=== PATIENT | female | born 1945 | race Hispanic/Latino ===

== ENCOUNTER → 2018-11-07 | Outpatient (CLI) | payer OTHER | END | disposition home or self-care (01) | LOC: RAH 11:58 | PROVIDERS: ATTEND Physical Medicine & Rehabilitation | DX: M47.812 Spondylosis without myelopathy or radiculopathy, cervical region (principal); M85.88 Other specified disorders of bone density and structure, other site; M46.92 Unspecified inflammatory spondylopathy, cervical region | CPT/HCPCS: 72050 ==

== ENCOUNTER 2020-01-10 20:27 | Emergency (ER) | payer OTHER ==
[2020-01-10] MEDS ORDERED: ACETAMINOPHEN EXTRA STRENGTH 500 MG TABLET ONE (20:59)
[2020-01-10] MEDS ORDERED: ONDANSETRON ODT 4 MG TAB ONE (23:13)
[2020-01-10] MEDS ORDERED: OSELTAMIVIR PHOSPHATE 75 MG CAP ONE (23:13)
== END 2020-01-10 23:44 | disposition home or self-care (01) ==
LOC: EDH 20:27
DX: J11.1 Influenza due to unidentified influenza virus with other respiratory manifestations (principal); I10 Essential (primary) hypertension; E78.00 Pure hypercholesterolemia, unspecified
CPT/HCPCS: 87804

== ENCOUNTER 2021-01-22 17:52 | Emergency (ER) | payer OTHER ==
[2021-01-22] MEDS ORDERED: CEFTRIAXONE SODIUM 1 GM IVP ONE (17:53)
[2021-01-22] MEDS ORDERED: ASPIRIN 325 MG TABLET ONE (18:07)
[2021-01-22] MEDS ORDERED: ONDANSETRON HCL 4 MG/2 ML VIAL ONE (18:07)
[2021-01-22 18:30] LABS: BASOPHILS % (AUTO) 0.4 % (0.0-5.0); HEMATOCRIT 39.7 % (36-48); LYMPHOCYTES % (AUTO) 22.1 % (21.0-51.0); MEAN CORPUSCULAR HEMOGLOBIN 28.3 pg (27.0-33.0); MEAN CORPUSCULAR HGB CONC 32.2 g/dL (32.0-36.0); MEAN CORPUSCULAR VOLUME 87.8 fL (79-99); MONOCYTES % (AUTO) 6.4 % (3.0-13.0); NEUTROPHILS % (AUTO) 69.8 % (40.0-77.0); PLATELET COUNT (AUTO) 253 K/uL (130-400); RED BLOOD CELL COUNT(AUTO) 4.52 MIL/uL (4.00-5.50); RED CELL DISTRIBUTION WIDTH 13.3 % (11.0-15.5)
[2021-01-22 18:40] LABS: APPEARANCE,URINE Clear (CLEAR); BILIRUBIN,URINE Negative (NEGATIVE); COLOR,URINE Yellow (YELLOW); GLUCOSE, URINE (UA) Negative (NEGATIVE); KETONES,URINE Trace mg/dL (NEGATIVE); LEUKOCYTE ESTERASE ,URINE Small (NEGATIVE); NITRATE,URINE Positive (NEGATIVE); OCCULT BLOOD,URINE Moderate (NEGATIVE); PROTEIN,URINE Negative (NEGATIVE)
[2021-01-22 18:41] LABS: CREATININE 0.7 mg/dL (0.5-1.5); POTASSIUM 4.1 mmol/L (3.5-5.1)
[2021-01-22 18:43] LABS: INR 0.91 (0.85-1.15)
[2021-01-22 18:44] LABS: PARTIAL THROMBOPLASTIN TIME 22.4 SEC (26.3-35.5)
[2021-01-22 18:46] LABS: ALBUMIN 3.8 g/dL (3.5-5.0); BILIRUBIN,TOTAL 0.2 mg/dL (0.2-1.0); TOTAL PROTEIN, SERUM 7.8 g/dL (6.0-8.3)
[2021-01-22 18:55] LABS: B-TYPE NATRIURETIC PEPTIDE 26 pg/mL (0-100)
[2021-01-22] MEDS ORDERED: PANTOPRAZOLE 40 MG/VIAL ONE (18:58)
[2021-01-22 18:59] LABS: BACTERIA,URINE Moderate /HPF (None Seen); RBC,URINE 0-1 /HPF (0-1)
[2021-01-22 19:00] LABS: SQUAMOUS EPITHELIAL CELL,UR Few /HPF (0-2)
[2021-01-22] MEDS ORDERED: IOHEXOL-350 75 ML VIAL IV ONE (19:50)
[2021-01-22] MEDS ORDERED: MAG HYDROX/AL HYDROX/SIMETH ES 30 ML SUSP UDCUP ONE (21:28)
[2021-01-22] MEDS ORDERED: LIDOCAINE HCL 2% VISCOUS 15 ML UDCUP ONE (21:28)
== END 2021-01-22 22:31 | disposition home or self-care (01) ==
LOC: EDH 17:52
DX: K29.00 Acute gastritis without bleeding (principal); R10.84 Generalized abdominal pain; I10 Essential (primary) hypertension; E78.00 Pure hypercholesterolemia, unspecified
CPT/HCPCS: 36415; 71045; 74177; 80053; 81001; 82550; 83690; 83880; 84484; 85025; 85610; 85730; 87077; 87088; 87186; 93005; 96365; 96375; 99285; C9113; J0696; J2405; Q9967

== ENCOUNTER → 2021-02-24 | Outpatient (CLI) | payer OTHER | END | disposition home or self-care (01) | LOC: RAH 09:47 | PROVIDERS: ATTEND Physical Medicine & Rehabilitation | DX: M47.26 Other spondylosis with radiculopathy, lumbar region (principal); M51.36 Other intervertebral disc degeneration, lumbar region; G95.89 Other specified diseases of spinal cord | CPT/HCPCS: 72100 ==

== ENCOUNTER 2021-06-22 18:35 | Emergency (ER) | payer MEDICARE, OTHER ==
[~2021-06-22] VITALS: Ht 154.9 cm; Wt 77.1 kg
[2021-06-22 18:37] VITALS: BP 152/92
[2021-06-22 18:54] LABS: APPEARANCE,URINE Clear (CLEAR); BILIRUBIN,URINE Negative (NEGATIVE); COLOR,URINE Yellow (YELLOW); GLUCOSE, URINE (UA) Negative (NEGATIVE); KETONES,URINE Negative (NEGATIVE); LEUKOCYTE ESTERASE ,URINE Moderate (NEGATIVE); NITRATE,URINE Negative (NEGATIVE); OCCULT BLOOD,URINE Trace (NEGATIVE); PH,URINE 6.5 (5.0-8.0); PROTEIN,URINE Negative (NEGATIVE); UROBILINOGEN,URINE 0.2 mg/dL (0.2-1.0)
[2021-06-22] MEDS ORDERED: ONDANSETRON 4MG INJ IVP SCH (19:00)
[2021-06-22] MEDS ORDERED: HYDROMORPHONE 1 MG INJ IVP SCH (19:00)
[2021-06-22] MEDS ORDERED: 0.9%NACL 1000ML 1,000 ML IV ONE (19:00)
[2021-06-22 19:29] LABS: BACTERIA,URINE Few /HPF (None Seen); MUCUS,URINE Few LPF (None Seen); SQUAMOUS EPITHELIAL CELL,UR Few /HPF (0-2); TRANSITIONAL EPI CELLS,URINE Moderate /HPF (None Seen)
[2021-06-22 19:35] LABS: BASOPHILS % (AUTO) 0.8 % (0.0-5.0); HEMATOCRIT 39.6 % (36-48); LYMPHOCYTES % (AUTO) 26.5 % (21.0-51.0); MEAN CORPUSCULAR HEMOGLOBIN 29.3 pg (27.0-33.0); MEAN CORPUSCULAR HGB CONC 33.3 g/dL (32.0-36.0); MEAN CORPUSCULAR VOLUME 87.8 fL (79-99); MONOCYTES % (AUTO) 6.5 % (3.0-13.0); NEUTROPHILS % (AUTO) 63.9 % (40.0-77.0); PLATELET COUNT (AUTO) 291 K/uL (130-400); RED BLOOD CELL COUNT(AUTO) 4.51 MIL/uL (4.00-5.50); RED CELL DISTRIBUTION WIDTH 12.9 % (11.0-15.5); WHITE BLOOD COUNT (AUTO) 6.6 K/uL (4.8-10.8)
[2021-06-22 19:51] LABS: CREATININE 0.6 mg/dL (0.5-1.5)
[2021-06-22 19:55] LABS: ALBUMIN 3.8 g/dL (3.5-5.0); BILIRUBIN,TOTAL 0.3 mg/dL (0.2-1.0)
[2021-06-22] MEDS ORDERED: NAPR-1180 PO (21:16)
[2021-06-22 21:29] VITALS: BP 134/88
== END 2021-06-22 21:44 | disposition home or self-care (01) ==
LOC: EDH 18:35
DX: N20.1 Calculus of ureter (principal); Z90.49 Acquired absence of other specified parts of digestive tract; K29.70 Gastritis, unspecified, without bleeding
CPT/HCPCS: 36415; 74176; 80053; 81001; 82150; 83690; 85025; 87088; 93005 ×2; 96361; 96374; 96375; 99285; J1170; J2405; J7030

== ENCOUNTER 2021-12-18 20:14 | Emergency (ER) | payer MEDICARE, OTHER ==
[~2021-12-18] VITALS: Ht 152.4 cm; Wt 72.6 kg
[~2021-12-18 20:14] MED LIST: NAPR-1180 PO
[2021-12-18 20:48] LABS: APPEARANCE,URINE CLEAR (CLEAR); BILIRUBIN,URINE NEGATIVE (NEGATIVE); COLOR,URINE YELLOW (YELLOW); GLUCOSE, URINE (UA) NEGATIVE (NEGATIVE); KETONES,URINE NEGATIVE (NEGATIVE); LEUKOCYTE ESTERASE ,URINE NEGATIVE (NEGATIVE); NITRATE,URINE NEGATIVE (NEGATIVE); OCCULT BLOOD,URINE NEGATIVE (NEGATIVE); PROTEIN,URINE NEGATIVE (NEGATIVE)
[2021-12-18 21:11] LABS: BASOPHILS % (AUTO) 0.5 % (0.0-5.0); EOSINOPHILS % (AUTO) 1.2 % (0.0-8.0); HEMATOCRIT 36.1 % (36-48); LYMPHOCYTES % (AUTO) 15.1 % (21.0-51.0); MEAN CORPUSCULAR HEMOGLOBIN 28.7 pg (27.0-33.0); MEAN CORPUSCULAR HGB CONC 32.1 g/dL (32.0-36.0); MEAN CORPUSCULAR VOLUME 89.4 fL (79-99); MONOCYTES % (AUTO) 5.3 % (3.0-13.0); NEUTROPHILS % (AUTO) 77.6 % (40.0-77.0); PLATELET COUNT (AUTO) 310 K/uL (130-400); RED BLOOD CELL COUNT(AUTO) 4.04 MIL/uL (4.00-5.50); RED CELL DISTRIBUTION WIDTH 13.6 % (11.0-15.5); WHITE BLOOD COUNT (AUTO) 7.8 K/uL (4.8-10.8)
[2021-12-18 21:25] LABS: CREATININE 0.7 mg/dL (0.5-1.5); POTASSIUM 4.1 mmol/L (3.5-5.1)
[2021-12-18 21:31] LABS: ALBUMIN 3.2 g/dL (3.5-5.0); BILIRUBIN,TOTAL 0.7 mg/dL (0.2-1.0); TOTAL PROTEIN, SERUM 7.3 g/dL (6.0-8.3)
[2021-12-19] MEDS ORDERED: MORPHINE 4 MG SYG IV ONE (03:30)
[2021-12-19] MEDS ORDERED: ONDANSETRON 4MG INJ IVP ONE (03:30)
[2021-12-19] MEDS ORDERED: 0.9% NACL 500ML IV.SOLN 500 ML IV ONE (03:30)
[2021-12-19] MEDS ORDERED: FAMOTIDINE 20MG VIAL IV ONE (03:30)
[2021-12-19] MEDS ORDERED: IOHEXOL 350 MG/ML 100ML INFUS..BTL IV ONE (03:44)
[2021-12-19 03:49] LABS: INR 0.94 (0.85-1.15); PROTHROMBIN TIME 10.3 SEC (9.6-11.6)
[2021-12-19 03:50] LABS: PARTIAL THROMBOPLASTIN TIME 25.3 SEC (26.3-35.5)
[2021-12-19 08:24] VITALS: BP 135/65
[2021-12-25] MEDS ORDERED: METR-172 PO (07:55)
[2021-12-25] MEDS ORDERED: LEVO500T90 PO (07:55)
== END 2021-12-19 08:25 | disposition home or self-care (01) ==
LOC: EDH 20:14
DX: K83.8 Other specified diseases of biliary tract (principal); Z87.442 Personal history of urinary calculi; Z90.49 Acquired absence of other specified parts of digestive tract; Z79.899 Other long term (current) drug therapy
CPT/HCPCS: 36415 ×2; 74177; 76705; 80053; 81003; 82140; 85025; 85610; 85730; 86140; 96374; 96375; 99285; J2270; J2405; J3490; J7040; Q9967

== ENCOUNTER → 2023-01-25 | Outpatient (CLI) | payer OTHER ==
[~2023-01-25] MED LIST changes: +LEVO-70 PO; +METR-172 PO
== END | disposition home or self-care (01) ==
LOC: RAH 08:00
PROVIDERS: ATTEND Internal Medicine
DX: M47.26 Other spondylosis with radiculopathy, lumbar region (principal); M51.16 Intervertebral disc disorders with radiculopathy, lumbar region; M48.061 Spinal stenosis, lumbar region without neurogenic claudication
CPT/HCPCS: 72148

== ENCOUNTER → 2023-05-31 | Outpatient (CLI) | payer OTHER | END | disposition home or self-care (01) | LOC: RAH 10:04 | PROVIDERS: ATTEND Clinical Nurse Specialist Family Health | DX: M19.042 Primary osteoarthritis, left hand (principal); M19.041 Primary osteoarthritis, right hand | CPT/HCPCS: 73130 ==

== ENCOUNTER 2023-06-14 22:54 | Emergency (ER) | payer OTHER ==
[~2023-06-14] VITALS: Ht 160 cm; Wt 81.6 kg
[2023-06-14 23:22] LABS: BASOPHILS # (AUTO) 0.05 K/uL (0.00-0.20); BASOPHILS % (AUTO) 0.6 % (0.0-5.0); EOSINOPHILS # (AUTO) 0.09 K/uL (0.00-0.70); EOSINOPHILS % (AUTO) 1.1 % (0.0-8.0); HEMATOCRIT 38.9 % (36-48); IMMATURE GRANULOCYTE ABSOLUTE 0.02 K/uL (0-1); LYMPHOCYTES # (AUTO) 1.6 K/uL (1.0-4.8); LYMPHOCYTES % (AUTO) 19.6 % (21.0-51.0); MEAN CORPUSCULAR HEMOGLOBIN 28.6 pg (27.0-33.0); MEAN CORPUSCULAR HGB CONC 33.2 g/dL (32.0-36.0); MEAN CORPUSCULAR VOLUME 86.3 fL (79-99); MONOCYTES # (AUTO) 0.5 K/uL (0.1-1.0); MONOCYTES % (AUTO) 6.1 % (3.0-13.0); NEUTROPHILS # (AUTO) 5.8 K/uL (1.8-7.7); NEUTROPHILS % (AUTO) 72.4 % (40.0-77.0); PLATELET COUNT (AUTO) 256 K/uL (130-400); RED BLOOD CELL COUNT(AUTO) 4.51 MIL/uL (4.00-5.50); RED CELL DISTRIBUTION WIDTH 13.2 % (11.0-15.5)
[2023-06-14] MEDS ORDERED: ALPRAZOLAM 0.25 MG TABLET PO ONE (23:30)
[2023-06-14 23:32] LABS: CREATININE 0.7 mg/dL (0.5-1.5); POTASSIUM 3.6 mmol/L (3.5-5.1)
[2023-06-14 23:40] LABS: ALBUMIN 3.6 g/dL (3.5-5.0); BILIRUBIN,TOTAL 0.3 mg/dL (0.2-1.0); TOTAL PROTEIN, SERUM 7.5 g/dL (6.0-8.3)
[2023-06-15] MEDS ORDERED: IOHEXOL 350 MG/ML 100ML INFUS..BTL IV ONE (00:22)
[2023-06-15 01:44] VITALS: BP 145/64; PULSE 78; RESP 16; O2SAT 97
== END 2023-06-15 01:53 | disposition home or self-care (01) ==
LOC: EDH 22:54
DX: F41.9 Anxiety disorder, unspecified (principal); Z90.49 Acquired absence of other specified parts of digestive tract
CPT/HCPCS: 99285; 71045; 84484; 80053; 85025; 36415; 93005; 70450; 70496; 70498; Q9967

== ENCOUNTER → 2023-10-31 | Outpatient (CLI) | payer OTHER | END | disposition home or self-care (01) | LOC: RAH 12:24 | PROVIDERS: ATTEND Internal Medicine | DX: S80.01XA Contusion of right knee, initial encounter (principal); M17.11 Unilateral primary osteoarthritis, right knee; M25.561 Pain in right knee; Z68.30 Body mass index [BMI] 30.0-30.9, adult; X58.XXXA Exposure to other specified factors, initial encounter; Y93.89 Activity, other specified; Y92.89 Other specified places as the place of occurrence of the external cause; Y99.8 Other external cause status | CPT/HCPCS: 73562 ==

== ENCOUNTER 2023-12-10 14:15 | Emergency (ER) | payer OTHER ==
[~2023-12-10] VITALS: Ht 160 cm; Wt 83.9 kg
[2023-12-10 14:25] VITALS: BP 154/74; PULSE 71; RESP 16
== END 2023-12-10 15:46 | disposition left against medical advice (07) ==
LOC: EDH 14:15
DX: S09.90XA Unspecified injury of head, initial encounter (principal); Z53.21 Procedure and treatment not carried out due to patient leaving prior to being seen by health care provider; W01.0XXA Fall on same level from slipping, tripping and stumbling without subsequent striking against object, initial encounter; Y93.89 Activity, other specified; Y92.89 Other specified places as the place of occurrence of the external cause; Y99.8 Other external cause status

== ENCOUNTER → 2024-03-10 | Outpatient (CLI) | payer OTHER | END | disposition home or self-care (01) | LOC: RAH 11:00 | DX: K76.0 Fatty (change of) liver, not elsewhere classified (principal); R10.9 Unspecified abdominal pain; R12 Heartburn; Z90.49 Acquired absence of other specified parts of digestive tract | CPT/HCPCS: 76700 ==

== ENCOUNTER → 2024-04-06 | Outpatient (CLI) | payer OTHER | END | disposition home or self-care (01) | LOC: RAH 13:32 | PROVIDERS: ATTEND Internal Medicine | DX: N63.11 Unspecified lump in the right breast, upper outer quadrant (principal); N64.4 Mastodynia; R92.333 Mammographic heterogeneous density, bilateral breasts | CPT/HCPCS: 77066 ==

== ENCOUNTER → 2024-04-17 | Outpatient (CLI) | payer OTHER ==
[2024-04-17 10:49] LABS: INR < 0.93 (0.85-1.15); PARTIAL THROMBOPLASTIN TIME 25.1 SEC (26.3-35.5); PROTHROMBIN TIME 9.9 SEC (9.6-11.6)
== END | disposition home or self-care (01) ==
LOC: RAH 09:03
DX: D05.11 Intraductal carcinoma in situ of right breast (principal); M17.11 Unilateral primary osteoarthritis, right knee; I10 Essential (primary) hypertension; E78.5 Hyperlipidemia, unspecified; G30.9 Alzheimer's disease, unspecified; F02.80 Dementia in other diseases classified elsewhere, unspecified severity, without behavioral disturbance, psychotic disturbance, mood disturbance, and anxiety; F32.1 Major depressive disorder, single episode, moderate; M81.0 Age-related osteoporosis without current pathological fracture; Z79.01 Long term (current) use of anticoagulants; Z17.0 Estrogen receptor positive status [ER+]; Z79.899 Other long term (current) drug therapy; Z90.49 Acquired absence of other specified parts of digestive tract; Z90.710 Acquired absence of both cervix and uterus
CPT/HCPCS: 19083; 85610; 85730; 88361; 36415; 88305; 88374; A4215 ×2; A4648

== ENCOUNTER → 2024-05-14 | Outpatient (CLI) | payer OTHER | END | disposition home or self-care (01) | LOC: RAH 14:51 | DX: Z01.818 Encounter for other preprocedural examination (principal); C50.911 Malignant neoplasm of unspecified site of right female breast; M47.815 Spondylosis without myelopathy or radiculopathy, thoracolumbar region | CPT/HCPCS: 71046 ==

== ENCOUNTER → 2025-01-28 | Outpatient (CLI) | payer OTHER ==
--- NOTE | 2025-01-28 15:47 | HMCIMG ---
CERV SPINE 2-3VWS HISTORY: Neck pain COMPARISON: None FINDINGS: 4 images of cervical spine were obtained. Mild degenerative changes are seen. There is straightening of normal lordotic curvature which may be related to muscle spasm or positioning. No loss of vertebral height is seen. No fracture or dislocation is seen. Degenerative changes are seen. IMPRESSION: 1. No fracture is seen.
== END | disposition home or self-care (01) ==
LOC: RAH 13:51
DX: M47.812 Spondylosis without myelopathy or radiculopathy, cervical region (principal); M48.061 Spinal stenosis, lumbar region without neurogenic claudication; M54.2 Cervicalgia; M25.561 Pain in right knee; M17.11 Unilateral primary osteoarthritis, right knee
CPT/HCPCS: 72040

== ENCOUNTER 2025-04-10 09:52 | Observation (INO) | payer OTHER ==
[~2025-04-10] VITALS: Ht 157.5 cm; Wt 78.9 kg
--- NOTE | 2025-04-10 10:11 | ERN ---
General Chief Complaint: Abdominal Pain Stated Complaint: ABDOMINAL PAIN Time Seen by MD: 09:53 Source: patient History of Present Illness Initial Comments Patient is a 80-year-old female coming in to be evaluated for abdominal discomfort. Patient states that her discomfort began last night. Localizes the pain to the right lower quadrant area. Patient has had a hysterectomy gallbladder removal as well. No fever or chills mild nauseousness no vomiting. Allergies: Coded Allergies: No Known Allergies (Unverified Allergy, Unknown, 01/23/21) Home Meds Active Scripts Metronidazole (Metronidazole) 500 Mg Tablet, 500 MG PO Q8H for 5 Days, #15 TAB Prov:SAMIR MALONEY SAMPLE HAND 12/25/21 Levofloxacin (Levofloxacin) 500 Mg Tablet, 500 MG PO DAILY for 5 Days, #5 TAB Prov:SAMIR MALONEY SAMPLE HAND 12/25/21 Naproxen (Naprosyn) 500 Mg Tablet, 375 MG PO BIDPC for 10 Days, #20 TAB 0 Refills Prov:DONI FITZPATRICK MD 06/22/21 Past Medical History Past Medical History: High Cholesterol, Hypertension, Other Medical History Other: breast ca Past Surgical History: Other Surgical History Other: breast ca Family History Family History: Negative Social History Social History: Negative, Lives with family ROS Dictation CONSTITUTIONAL: No chills, no fever, no weakness, no diaphoresis, no malaise. HEAD/FACE: No signs of trauma. EENT: No eye pain, no blurred vision, no tearing, no double vision, no ear pain, no ear discharge, no nose pain, no nasal congestion, no throat pain, no throat swelling, no mouth pain. RESPIRATORY: No cough, no orthopnea, no SOB, no stridor, no wheezing. CARDIOVASCULAR: No chest pain, no edema, no palpitations, no syncope. GASTROINTESTINAL/ABDOMINAL: abdominal pain, no constipation, no diarrhea, no nausea, no vomiting. GENITOURINARY: No abnormal discharge, no dysuria, no frequent urination, no hematuria. No complaints of pain in the genitals. MUSCULOSKELETAL: No back pain, no gout, no joint pain, no joint swelling, no muscle pain, no muscle stiffness, no neck pain. INTEGUMENTARY: No change in color, no change in hair/nails, no dryness, no lesion, no lumps, no rash. NEUROLOGICAL/PSYCH: No anxiety, not depressed, no emotional problem, no headache, no numbness, no pre-existing deficit, no history of seizures, no tremors, no weakness. HEMATOLOGIC/LYMPHATIC: Not anemic, no history of blood clots, no apparent bleeding, no bruising, glands not swollen. All Systems Negative, Except as Noted. Physical Exam Physical Exam Dictation VITAL SIGNS: Reviewed. GENERAL APPEARANCE: Alert, oriented x3, no acute distress, obese. HEAD AND FACE: Non-traumatic. EYES: PERRL, pink conjunctivas, eyelid no trauma, anterior chamber clear. EARS: Pinnas intact and no signs of trauma or erythema. Ear canals clear and no discharge. TMs no erythema. NOSE: No discharge, no bleeding. OROPHARYNX: Mouth normal, teeth no caries, tongue pink. Pharynx clear, no erythema. Tonsils no exudates, no abscesses noted. Mucous membrane moist. NECK: Supple, non-tender, no thyromegaly, no masses, no JVD, no bruits. BREAST: Deferred. CHEST: No tenderness, no crepitus, no paradoxical movement, no retractions. LUNGS: Clear, well-ventilated, symmetric, no rales, no wheezing, no rhonchi, no stridor, good breath sounds bilaterally. HEART: Regular rate, regular rhythm, no murmur, no gallops. VASCULAR: No peripheral edema. ABDOMEN: Soft, positive bowel sounds, nondistended, no guarding, right lower quadrant tender, no rebound, no masses no hepatomegaly, no splenomegaly, no Jennings's sign, no hernias. RECTAL: Deferred. GENITAL: Deferred. NEUROLOGICAL: Normal speech, gross motor function intact, gross sensory function intact. MUSCULOSKELETAL: Neck nontender, full range of motion, back nontender, full range of motion. EXTREMITIES: Nontender, full range of motion. SKIN: Color pink, dry, no turgor, no rash, no lacerations, no abrasions, no contusions. LYMPHATICS: Deferred. Results Laboratory and Microbiology Lab and Micro Result Laboratory Tests Test 04/10/25 10:13 04/10/25 10:40 White Blood Count 10.8 K/uL (4.8-10.8) Red Blood Count 4.41 MIL/uL (4.00-5.50) Hemoglobin 12.9 g/dL (12.0-16.0) Hematocrit 37.4 % (36-48) Mean Corpuscular Volume 84.8 fL (79-99) Mean Corpuscular Hemoglobin 29.3 pg (27.0-33.0) Mean Corpuscular Hemoglobin Concent 34.5 g/dL (32.0-36.0) Red Cell Distribution Width 13.5 % (11.0-15.5) Platelet Count 253 K/uL (130-400) Mean Platelet Volume 11.0 fL (7.5-10.5) H Immature Granulocyte % (Auto) 0.4 % (0-1) Neutrophils (%) (Auto) 79.8 % (40.0-77.0) H Lymphocytes (%) (Auto) 12.0 % (21.0-51.0) L Monocytes (%) (Auto) 6.8 % (3.0-13.0) Eosinophils (%) (Auto) 0.6 % (0.0-8.0) Basophils (%) (Auto) 0.4 % (0.0-5.0) Neutrophils # (Auto) 8.6 K/uL (1.8-7.7) H Lymphocytes # (Auto) 1.3 K/uL (1.0-4.8) Monocytes # (Auto) 0.7 K/uL (0.1-1.0) Eosinophils # (Auto) 0.06 K/uL (0.00-0.70) Basophils # (Auto) 0.04 K/uL (0.00-0.20) Absolute Immature Granulocyte (auto 0.04 K/uL (0-1) Nucleated Red Blood Cells 0.0 % (0.0-0.19) Sodium Level 139 mmol/L (136-145) Potassium Level 3.8 mmol/L (3.5-5.1) Chloride Level 104 mmol/L (101-111) Carbon Dioxide Level 28 mmol/L (21-32) Blood Urea Nitrogen 9 mg/dL (7-18) Creatinine 0.5 mg/dL (0.5-1.0) Glomerular Filtration Rate Calc 95 mL/min (>90) Random Glucose 116 mg/dL (70-105) H Total Calcium 8.4 mg/dL (8.5-10.1) L Urine Color COLORLESS (YELLOW) Urine Appearance CLEAR (CLEAR) Urine pH 8.0 (5.0-8.0) Urine Specific [place] 1.004 (1.001-1.031) Urine Protein NEGATIVE mg/dL (NEGATIVE) Urine Glucose (UA) NEGATIVE mg/dL (NEGATIVE) Urine Ketones NEGATIVE mg/dL (NEGATIVE) Urine Occult Blood +- (TRACE) (NEGATIVE) H Urine Nitrate NEGATIVE (NEGATIVE) Urine Bilirubin NEGATIVE mg/dL (NEGATIVE) Urine Urobilinogen 0.2 mg/dL (0.2-1.0) Urine Leukocyte Esterase NEGATIVE Ilia/uL Urine RBC 0-1 /HPF (0-1) Urine WBC 0-1 /HPF (0-1) Urine Squamous Epithelial Cells RARE /HPF (0-2) Urine Bacteria None /HPF (None Seen) Labs Reviewed?: Yes MDM MDM: Differential diagnosis: Gastroenteritis, nausea and vomiting, abdominal discomfort Rationale: Tests considered and ordered secondary to shared decision making include: Previous outside records reviewed: Old ER visits. Risk of complication and/or morbidity or mortality of patient management: None Medications-Per medication reconciliation Need for hospitalization: Patient does meet criteria for hospitalization. Need for emergency major/minor surgery: No There are no social concerns with this patient. Prescription drug management Prescriptions will include symptomatic care Patient's prior external medical records from other ER visits were reviewed by me as indicated. Prior testing and results from previous visits were reviewed. Prior tests were taken into account with medical decision making and resource utilization, independent historian/historians were used to obtain complete medical history. I independently interpreted the test that were performed, results were reviewed by me and considered findings on radiology if ordered. Medical management and examination interpretation discussions were had by me with other qualified healthcare professionals as indicated for the patient's care. Patient is a 80-year-old female coming in to be evaluated for abdominal discomfort nausea and vomiting. Due to location of the pain in the right lower quadrant area CT was performed which states did not disclose acute findings. Laboratory workup mild neutrophil shift. Patient will be admitted under the care of [facility] for ongoing management. ED Course Orders Procedure Category Date Status Time Cbc With Differential LAB 04/10/25 Complete 10:04 Basic Metabolic Panel LAB 04/10/25 Complete 10:04 Urinalysis LAB 04/10/25 Complete W/Microscopic 10:04 Ct Abdomen/Pelvis W/O CT 04/10/25 Resulted Contrast 10:04 Ketorolac PHA 04/10/25 Complete Tromethamine 15mg/Ml 11:30 Ondansetron Odt 4mg PHA 04/10/25 Complete Tab (Zofran 4mg Odt) 11:30 0.9%Nacl 1000ml (Ns PHA 04/10/25 Complete 1000ml) 12:00 Pantoprazole 40mg Inj PHA 04/10/25 Complete (Protonix 40mg Inj 12:00 Morphine 2mg Syg PHA 04/10/25 Complete (Morphine 2mg Syg) 12:00 Current Medications Medications (Trade) Dose Ordered Sig/Darryl Route PRN Reason Start Time Stop Time Status Last Admin Dose Admin Ketorolac Tromethamine (toRADol) 15 mg ONCE ONCE IM 04/10/25 11:30 04/10/25 11:31 DC 04/10/25 11:21 Morphine Sulfate (morPHINE 2MG SYG) 2 mg ONCE ONCE IVP 04/10/25 12:00 04/10/25 12:01 DC Ondansetron HCl (zoFRAN 4MG ODT) 4 mg ONCE ONCE SL 04/10/25 11:30 04/10/25 11:31 DC 04/10/25 11:21 Pantoprazole Sodium (PROTonix 40MG INJ) 40 mg ONCE ONCE IVP 04/10/25 12:00 04/10/25 12:01 DC Sodium Chloride 1,000 ml @ 0 mls/hr ONCE ONCE IV 04/10/25 12:00 04/10/25 12:01 DC Vital Signs Date Time Temp Pulse Resp B/P (MAP) Pulse Ox O2 Delivery O2 Flow Rate FiO2 04/10/25 09:58 98.1 80 18 149/130 97 Room Air* 0 21 04/10/25 09:56 98.1 80 18 149/130 97 Room Air 0 DX & DISP Disposition: Inpatient Decision to Admit Time: 13:04 Departure Impression: Primary Impression: Gastroenteritis Additional Impression: Nausea and vomiting Condition: Stable Referrals: TERRY RIVERA MD (PCP) TOM GARVIN MD Apr 10, 2025 10:11
[2025-04-10 10:17] LABS: BASOPHILS # (AUTO) 0.04 K/uL (0.00-0.20); BASOPHILS % (AUTO) 0.4 % (0.0-5.0); EOSINOPHILS # (AUTO) 0.06 K/uL (0.00-0.70); EOSINOPHILS % (AUTO) 0.6 % (0.0-8.0); HEMATOCRIT 37.4 % (36-48); IMMATURE GRANULOCYTE ABSOLUTE 0.04 K/uL (0-1); LYMPHOCYTES # (AUTO) 1.3 K/uL (1.0-4.8); MEAN CORPUSCULAR HEMOGLOBIN 29.3 pg (27.0-33.0); MEAN CORPUSCULAR HGB CONC 34.5 g/dL (32.0-36.0); MEAN CORPUSCULAR VOLUME 84.8 fL (79-99); MONOCYTES # (AUTO) 0.7 K/uL (0.1-1.0); MONOCYTES % (AUTO) 6.8 % (3.0-13.0); NEUTROPHILS # (AUTO) 8.6 K/uL (1.8-7.7); NEUTROPHILS % (AUTO) 79.8 % (40.0-77.0); PLATELET COUNT (AUTO) 253 K/uL (130-400); RED BLOOD CELL COUNT(AUTO) 4.41 MIL/uL (4.00-5.50); RED CELL DISTRIBUTION WIDTH 13.5 % (11.0-15.5); WHITE BLOOD COUNT (AUTO) 10.8 K/uL (4.8-10.8)
[2025-04-10 10:24] LABS: CREATININE 0.5 mg/dL (0.5-1.0); POTASSIUM 3.8 mmol/L (3.5-5.1)
[2025-04-10 10:51] LABS: APPEARANCE,URINE CLEAR (CLEAR); BILIRUBIN,URINE NEGATIVE (NEGATIVE); COLOR,URINE COLORLESS (YELLOW); GLUCOSE, URINE (UA) NEGATIVE (NEGATIVE); KETONES,URINE NEGATIVE (NEGATIVE); LEUKOCYTE ESTERASE ,URINE NEGATIVE Leu/uL (NEGATIVE); NITRATE,URINE NEGATIVE (NEGATIVE); PROTEIN,URINE NEGATIVE (NEGATIVE); UROBILINOGEN,URINE 0.2 mg/dL (0.2-1.0)
[2025-04-10 10:52] LABS: RBC,URINE 0-1 /HPF (0-1); SQUAMOUS EPITHELIAL CELL,UR RARE /HPF (0-2); WBC,URINE 0-1 /HPF (0-1)
[2025-04-10] MEDS: ondanSETRON ODT 4MG TAB SL ONE (11:21)
[2025-04-10] MEDS: ketOROlac 15MG/ML VIAL (15MG/ML) IM ONE (11:21)
--- NOTE | 2025-04-10 11:27 | HMCIMG ---
CT ABDOMEN/PELVIS W/O CONTRAST HISTORY: Right lower abdominal pain COMPARISON: 12/22/2021 TECHNIQUE: Multiple sequential axial images of the abdomen and pelvis were obtained from the dome of the diaphragm through symphysis pubis. Patient was not given contrast through intravenous route. Oral contrast was not given. FINDINGS: No pleural effusion is seen bilaterally. There is no evidence of parenchymal disease or pulmonary nodule of the visualized lower lungs. Degenerative changes of the thoracolumbar spine are present. The heart is not enlarged. The liver, spleen, adrenal glands and pancreas are unremarkable. There is no evidence of hydronephrosis bilaterally. No evidence of renal stone is seen. Fecal material is seen in the colon. There are normal size retroperitoneal and mesenteric lymph nodes. No ascites is seen. Atherosclerotic changes are present. Appendix is not well-seen limiting evaluation. There is mild diverticulosis. Pelvic sidewalls are symmetric bilaterally. Bladder is well distended without wall thickening. IMPRESSION: 1. Mild tuberculosis. Fecal material is seen in the colon. No ascites. CT was performed with one or more following dose reduction techniques: automated exposure control, adjustment of the mA and kv according to patient's size, or use of a iterative reconstruction technique.
[2025-04-10] MEDS: morPHINE 2 MG SYG IVP ONE (13:17)
[2025-04-10] MEDS: 0.9%NACL 1000ML 1,000 ML IV ONE (13:17)
[2025-04-10] MEDS: PANTOPrazole 40 MG/VIAL IVP ONE (13:18)
[2025-04-10] MEDS ORDERED: NITROGLYCERIN 0.4 MG SL TAB SL PRN (13:30)
[2025-04-10] MEDS ORDERED: acetaMINOPHEN 325 MG TAB PO PRN ×2 (13:30)
[2025-04-10] MEDS ORDERED: BENZOCAINE/MENTH/CETYLPYRD CL 1 EACH LOZENGE MM PRN (13:30)
[2025-04-10] MEDS ORDERED: LACTULOSE 20 GM/30 ML UDCUP PO PRN (13:30)
[2025-04-10] MEDS ORDERED: ondanSETRON 4MG INJ IV PRN (13:30)
[2025-04-10] MEDS ORDERED: hydrALAZine 25MG TABLET PO PRN (13:30)
[2025-04-10] MEDS ORDERED: LIDOCAINE HCL 2% VISCOUS 30 ML, MAG/ALUM/SIMETH 30ML 30 ML, DICYCLOMINE HCL 20 MG PO PRN (13:30)
[2025-04-10] MEDS ORDERED: DICYCLOMINE HCL 10 MG/5 ML ML PO PRN (13:30)
[2025-04-10] MEDS ORDERED: doCUSate SODIUM 100 MG CAP PO PRN (13:30)
[2025-04-10] MEDS ORDERED: polyETHYLene GLYCol 3350 17 GM POWD.PACK PO PRN (13:30)
[2025-04-10] MEDS ORDERED: LIDOCAINE HCL 2% VISCOUS 15 ML UDCUP PO PRN (13:30)
[2025-04-10] MEDS ORDERED: MAG/ALUM/SIMETH 30 ML UDCUP PO PRN (13:30)
[2025-04-10] MEDS ORDERED: ARTIFICAL TEARS SOL 15 ML OP PRN (13:30)
--- NOTE | 2025-04-10 15:20 | NUR ---
gave report to jimenez hayes no concerns voiced
[2025-04-10 16:00] VITALS: BP 127/64; PULSE 77; RESP 18; TEMP 98
[2025-04-10] MEDS ORDERED: PHARMACY COMMUNICATION MISC SCH (16:30)
[2025-04-10] MEDS: metRONIDazole 500MG/100ML BAG IV SCH (17:12)
[2025-04-10] MEDS: CIPROFLOXACIN HCL 500 MG TABLET PO SCH (17:35)
[2025-04-10 20:00] VITALS: BP 138/67; PULSE 68; RESP 20; TEMP 98.5; O2SAT 97
[2025-04-10] MEDS ORDERED: morPHINE 2 MG SYG IVP PRN (20:00)
[2025-04-10] MEDS ORDERED: ketOROlac 15MG/ML VIAL (15MG/ML) IV PRN (20:00)
--- NOTE | 2025-04-10 20:12 | HP ---
[facility] HISTORY & PHYSICAL Date Patient Seen: Apr 10, 2025 Time of Visit: 19:44 Supervising Physician: Dr. Lee Ricketts Primary Care Physician: Dr. Ac Stinson Outpatient Specialists: [ ] Inpatient Consults: [ ] PROBLEM LIST: 1. Gastroenteritis 2. Hypertension uncontrolled, POA 3. Right lower quadrant abdominal pain 4. Diverticulosis 5. Chronic constipation 6. Hypertension 7. History of right breast cancer status post bilateral mastectomy HPI: Stacy Rowley is an 80-year-old lady patient of primary care provider, Dr. Ac Stinson, health history, hypertension, hyperlipidemia, chronic constipation, and right breast cancer status post bilateral mastectomy presents to the emergency department, today, 04/10/25 at 0955 for right lower quadrant abdominal pain. Patient reports the pain started last evening and has progressively worsened. Patient denies associated symptoms including nauseous ness, vomiting, fever, chills, ill person contact, dysuria, and diarrhea currently. During the patient's initial clinical workup in the emergency department, at the end of the provider's assessment, the patient became nauseous and vomited. Vital signs on arrival: Temperature 98.1, respirations 18, pulse 80, blood pressure 149/130, pulse ox 97% on room air FiO2 21 Laboratory results: WBC 10.8, hemoglobin 12.9, hematocrit 37.4%, platelets 257, sodium 139, potassium 3.8, BUN nine, creatinine 0.5, and GFR 95. Urine for urinalysis: Urine nitrate negative, urine leukocyte esterase negative. CT abdomen without contrast results: Mild diverticulosis. Fecal impaction seen. In the emergency department patient received the following: Daupuar13 mg IV push x1 morphine2 mg IV x1, Zofran4 mg IV push x1, Protonix 40 mg IV push x1 and 1 L of normal saline. Patient was assessed in her room, 328 on continuous telemetry monitoring with daughter at bedside. Patient reports and indicates during my assessment right lower quadrant abdominal pain. Patient also reports chronic constipation. The patient denies shortness or breath, chest pain, dysuria, bloody stools, and recent ill person contact currently. Plan: Admit, with continuous telemetry monitoring Antibiotics ciprofloxacin 500 mg p.o. daily and metronidazole 500 mg IV q.8 hours Diet: Clear liquids advance as tolerated NS 50 mL an hour DC when patient tolerates p.o. well DVT prophylaxis heparin 5000 units b.i.d. subQ GI prophylaxis Protonix 40 mg IV push daily A.m. labs ordered: CBC, CMP, hepatic panel, magnesium level, PAST MEDICAL HX: see above PAST SURGICAL HX: noncontributory SOCIAL HISTORY: No tobacco, ETOH, or illicit drug use Coded Allergies: No Known Allergies (Unverified Allergy, Unknown, 01/23/21) REVIEW OF SYSTEMS: 12 point ROS reviewed with patient. Pertinent positives mentioned above. Otherwise negative. PHYSICAL EXAM: GENERAL: alert, awake, oriented, friendly, and in no acute distress. HEENT: EOMI, Sclera non icteric, moist mucosa NECK: Supple, no JVD, trachea midline LUNGS: Clear breath sounds bilaterally. No wheezes HEART: Regular rate and rhythm. Normal S1 and S2, without murmurs ABD: Abdomen soft, tenderness right lower quadrant. Bowel sounds present EXT: No clubbing cyanosis or edema NEURO: Alert and oriented to person, follows commands Vital Signs (last 8hr) Date Time Temp Pulse Resp B/P (MAP) Pulse Ox O2 Delivery O2 Flow Rate FiO2 04/10/25 16:00 98.1 77 18 127/64 93 Room Air 04/10/25 15:43 Room Air* 0 21 04/10/25 13:57 65 17 132/62 96 Room Air* 0 21 04/10/25 12:00 67 19 123/63 98 Room Air* 0 21 LABS: Hematology Labs: Test 04/10/25 10:13 Range/Units White Blood Count 10.8 4.8-10.8 K/uL Red Blood Count 4.41 4.00-5.50 MIL/uL Hemoglobin 12.9 12.0-16.0 g/dL Hematocrit 37.4 36-48 % Mean Corpuscular Volume 84.8 79-99 fL Mean Corpuscular Hemoglobin 29.3 27.0-33.0 pg Mean Corpuscular Hemoglobin Concent 34.5 32.0-36.0 g/dL Red Cell Distribution Width 13.5 11.0-15.5 % Platelet Count 253 130-400 K/uL Mean Platelet Volume 11.0 H 7.5-10.5 fL Immature Granulocyte % (Auto) 0.4 0-1 % Neutrophils (%) (Auto) 79.8 H 40.0-77.0 % Lymphocytes (%) (Auto) 12.0 L 21.0-51.0 % Monocytes (%) (Auto) 6.8 3.0-13.0 % Eosinophils (%) (Auto) 0.6 0.0-8.0 % Basophils (%) (Auto) 0.4 0.0-5.0 % Neutrophils # (Auto) 8.6 H 1.8-7.7 K/uL Lymphocytes # (Auto) 1.3 1.0-4.8 K/uL Monocytes # (Auto) 0.7 0.1-1.0 K/uL Eosinophils # (Auto) 0.06 0.00-0.70 K/uL Basophils # (Auto) 0.04 0.00-0.20 K/uL Absolute Immature Granulocyte (auto 0.04 0-1 K/uL Nucleated Red Blood Cells 0.0 0.0-0.19 % Chemistry Labs: Test 04/10/25 10:13 Range/Units Sodium Level 139 136-145 mmol/L Potassium Level 3.8 3.5-5.1 mmol/L Chloride Level 104 101-111 mmol/L Carbon Dioxide Level 28 21-32 mmol/L Blood Urea Nitrogen 9 7-18 mg/dL Creatinine 0.5 0.5-1.0 mg/dL Glomerular Filtration Rate Calc 95 >90 mL/min Random Glucose 116 H 70-105 mg/dL Total Calcium 8.4 L 8.5-10.1 mg/dL DIAGNOSTICS / RADIOLOGY RESULTS: CT ABDOMEN/PELVIS W/O CONTRAST HISTORY: Right lower abdominal pain COMPARISON: 12/22/2021 TECHNIQUE: Multiple sequential axial images of the abdomen and pelvis were obtained from the dome of the diaphragm through symphysis pubis. Patient was not given contrast through intravenous route. Oral contrast was not given. FINDINGS: No pleural effusion is seen bilaterally. There is no evidence of parenchymal disease or pulmonary nodule of the visualized lower lungs. Degenerative changes of the thoracolumbar spine are present. The heart is not enlarged. The liver, spleen, adrenal glands and pancreas are unremarkable. There is no evidence of hydronephrosis bilaterally. No evidence of renal stone is seen. Fecal material is seen in the colon. There are normal size retroperitoneal and mesenteric lymph nodes. No ascites is seen. Atherosclerotic changes are present. Appendix is not well-seen limiting evaluation. There is mild diverticulosis. Pelvic sidewalls are symmetric bilaterally. Bladder is well distended without wall thickening. IMPRESSION: 1. Mild tuberculosis. Fecal material is seen in the colon. No ascites. PLAN NEURO: Minimize central acting medications as possible. Maintain fall precautions, adequate lighting during the day PULMONARY: Supplemental 02 as needed. Maintain aspiration precautions at all times CARDIOVASCULAR: Follow hemodynamics. Vital signs per facility protocol GI & NUTRITION: Continue with nutritional support. Continue stool softeners and laxatives as needed. KIDNEYS & ELECTROLYTES: Strict monitoring of intake, output and overall fluid balance. Avoid nephrotoxic medications to the extent possible. Medications to be dosed according to renal function. Monitor electrolytes and replace as needed ENDOCRINE: Maintain blood glucose between 100-180 at all times. Hypoglycemia protocol in place INFECTIOUS DISEASE: Trend temperature, WBC and procalcitonin level Follow cultures, deescalate antibiotics as soon as possible. Panculture if new onset fever ONCOLOGY/HEMATOLOGY/COAGULATION: Monitor for s/s of bleeding Monitor hemoglobin, coagulation studies as needed SKIN: Pressure ulcer prevention per facility protocol Specialty mattress ORTHO/REHAB: Continue PT/OT Prophylaxis: Continue GI and DVT prophylaxis Code Status: Full Resuscitation Disposition: TBD Other: Total patient care time exceeds 35 minutes excluding all procedures. HIRAM LOZA NP Apr 10, 2025 20:12
[2025-04-10] MEDS ORDERED: PoTASSium chl 10% ELIXIR 20MEQ 20 MEQ/15 ML UDCUP PO PRN (20:30)
[2025-04-10] MEDS ORDERED: PoTASSium chloRIDE 20MEQ/100ML 100 ML IV PRN (20:30)
[2025-04-10] MEDS: 0.9%NACL 1000ML 1,000 ML IV SCH (21:24)
[2025-04-10] MEDS: HEParin 5,000 UNIT VIAL SQ SCH (21:37)
[2025-04-11] VITALS: BP 116/61; PULSE 65; RESP 18; TEMP 98.7
[2025-04-11 04:00] VITALS: BP 120/59; PULSE 70; RESP 18; TEMP 98.3
[2025-04-11 04:32] LABS: HEMATOCRIT 33.1 % (36-48); MEAN CORPUSCULAR HEMOGLOBIN 28.6 pg (27.0-33.0); MEAN CORPUSCULAR HGB CONC 32.3 g/dL (32.0-36.0); MEAN CORPUSCULAR VOLUME 88.5 fL (79-99); RED BLOOD CELL COUNT(AUTO) 3.74 MIL/uL (4.00-5.50); RED CELL DISTRIBUTION WIDTH 13.8 % (11.0-15.5); WHITE BLOOD COUNT (AUTO) 8.2 K/uL (4.8-10.8)
[2025-04-11 04:47] LABS: ALBUMIN 2.6 g/dL (3.5-5.0); BILIRUBIN,TOTAL 0.6 mg/dL (0.2-1.0); CREATININE 0.5 mg/dL (0.5-1.0); MAGNESIUM 1.8 mg/dL (1.80-2.40); POTASSIUM 3.3 mmol/L (3.5-5.1); TOTAL PROTEIN, SERUM 5.7 g/dL (6.0-8.3)
[2025-04-11] MEDS: PoTASSium chloRIDE 20MEQ ER 20 MEQ ERTAB PO PRN (05:07)
[2025-04-11] MEDS: MAGNESIUM 2GM PREMIX 50ML 50 ML IV PRN (05:07)
[2025-04-11 07:49] VITALS: BP 138/58; PULSE 73; RESP 19; TEMP 98.7
[2025-04-11] MEDS: PANTOPrazole 40 MG/VIAL IVP SCH (07:57)
[2025-04-11 08:00] VITALS: O2SAT 95
[2025-04-11 12:00] VITALS: BP 126/60; PULSE 63; RESP 18; TEMP 97.9
--- NOTE | 2025-04-11 12:14 | NUR ---
MET W PT AND DAUGHTER SARAH FOR DC PLANNING SARAH STATES PT IS FORGETFUL WITH SLIGHT DEMENTIA SO SHE NEEDS TO HAVE ALL MEDICAL PLAN ALOS COMMUNICATED TO [facility].. STATES THAT PATIENT LIVES WITH RIO, THE OTHER DAUGHTER BUT THAT SHE IS THE PROVIDER FOR HER MOTHER 20/, STATES THAT HER MOTHER HAS A ROLLING WALKER AND A SHOWER CHAIR, THAT HOME IS SAFE AND ACCESSIBLE AND THAT THE DTR'S TAKE TURNS DRIVING PT, BUT MOSTLY IT IS RADHA SMITH THE DCP IS HOME, DENIED FINANCIAL STRAIN Addendum: 04/11/25 at 1219 by JULES LANGE RN CM Amended: Links added.
[2025-04-11 16:00] VITALS: BP 120/58; PULSE 72; RESP 17; TEMP 98.2
[2025-04-11] MEDS: BisaCODYL 5 MG TABLET.DR PO ONE (16:41)
[2025-04-11] MEDS: LACTULOSE 20 GM/30 ML UDCUP PO ONE (16:41)
--- NOTE | 2025-04-11 18:27 | NUR ---
PATIENT DISCHARGED HOME ID BAND AND IV REMOVED. DISCHARGE INSTRUCTIONS EXPLAINED AND GIVEN TO PATIENT. PATIENT VERBALIZED UNDERSTANDING. BELONGINGS PACKED AND TAKEN BY PATIENT. WHEELED DOWN TO PRIVATE CAR.
--- NOTE | 2025-04-11 20:39 | DS ---
[facility] DISCHARGE SUMMARY Date Patient Seen: Apr 11, 2025 Time of Visit: 20:37 Supervising Physician: Dr. Juliocesar Scott Primary Care Physician: Dr. Ac Stinson Outpatient Specialists: [ ] Inpatient Consults: [ ] PROBLEM LIST: 1. Gastroenteritis, POA resolved at the time of discharge 2. Hypertension uncontrolled, POA, resolved at the time of discharge 3. Right lower quadrant abdominal pain, resolved at the time of discharge 4. Diverticulosis 5. Chronic constipation 6. Hypertension 7. History of right breast cancer status post bilateral mastectomy HOSPITAL COURSE: The patient was admitted, yesterday, 04/10/2025 and started receiving gentle IV hydration to address dehydration secondary to inadequate p.o. intake related to three episodes of nauseousness with vomiting. Antibiotics use for the treatment of gastroenteritis : Ciprofloxacin 500 mg p.o. b.i.d. and metronidazole 500 mg IV q.8 hours. The patient has been able to tolerate the advancement of diet, had a bowel movement, and lower acute abdominal pain has resolved. At this time in the admission process, the patient is hemodynamically stable, pain is well controlled, patient has had bowel movements, patient will be prescribed antibiotics, and stool softeners to take daily, patient will be educated on the importance to follow up with primary care provider within 2-4 days for a wellness check status post discharged from the hospital. The patient and both of her daughters and granddaughters are in agreement with the plan, and verbalize understanding. At this time the patient is medically cleared and can be discharged home with family care. HPI (per admitting provider) Stacy Rowley is an 80-year-old lady patient of primary care provider, Dr. Ac Stinson, health history, hypertension, hyperlipidemia, chronic constipation, and right breast cancer status post bilateral mastectomy presents to the emergency department, today, 04/10/25 at 0955 for right lower quadrant abdominal pain. Patient reports the pain started last evening and has progressively worsened. Patient denies associated symptoms including nauseousness, vomiting, fever, chills, ill person contact, dysuria, and diarrhea currently. During the patient's initial clinical workup in the emergency department, at the end of the provider's assessment, the patient became nauseous and vomited. Vital signs on arrival: Temperature 98.1, respirations 18, pulse 80, blood pressure 149/130, pulse ox 97% on room air FiO2 21 Laboratory results: WBC 10.8, hemoglobin 12.9, hematocrit 37.4%, platelets 257, sodium 139, potassium 3.8, BUN nine, creatinine 0.5, and GFR 95. Urine for urinalysis: Urine nitrate negative, urine leukocyte esterase negative. CT abdomen without contrast results: Mild diverticulosis. Fecal impaction seen. In the emergency department patient received the following: [id number] mg IV push x1 morphine2 mg IV x1, Zofran4 mg IV push x1, Protonix 40 mg IV push x1 and 1 L of normal saline. Patient was assessed in her room, 328 on continuous telemetry monitoring with daughter at bedside. Patient reports and indicates during my assessment right lower quadrant abdominal pain. Patient also reports chronic constipation. The patient denies shortness or breath, chest pain, dysuria, bloody stools, and recent ill person contact currently. The patient was treated for the following problems: ACTIVE PROBLEM LIST FOR THE HOSPITALIZATION: CHRONIC PROBLEMS: continue previous management per PCP unless otherwise indicat ed [facility]ATER FINDINGS/RECOMMENDATIONS: [ ] PROCEDURES: as mentioned above DISCHARGE MEDICATIONS: Pt hemodynamically stable and afebrile at time of discharge. PCP notified of patients admission, hospital course and discharge. PHYSICAL EXAM: GENERAL: alert, awake, oriented, friendly, and in no acute distress. HEENT: EOMI, Sclera non icteric, moist mucosa NECK: Supple, no JVD, trachea midline LUNGS: Clear breath sounds bilaterally. No wheezes HEART: Regular rate and rhythm. Normal S1 and S2, without murmurs ABD: Abdomen soft, nontender Bowel sounds present EXT: No clubbing cyanosis or edema NEURO: Alert and oriented to person, follows commands FOLLOW-UP: Dr. Ac Stinson Follow-up with PCP in 2-3 days RECOMMENDATIONS: Discharge medications provided to the patient in a prescription form: Ofloxacin 500 mg tablet p.o. b.i.d. five days, 10 tablets Metronidazole 500 mg p.o. t.i.d. five days, 15 tablets Colace 100 mg capsule p.o. b.i.d. for 30 days, 60 capsule ( education provided to stop taking this medication when loose bowel movements occur) Dulcolax 10 mg tablet p.o. b.i.d. for 30 days, 60 tablets. ( education provided to stop taking this medication when loose bowel movements occur) This case was seen and discussed with my supervising physician. More than 45 minutes spent on discharge process, including evaluation of the patient, discussion with nursing staff, medication reconciliation and follow-up appointments HIRAM LOZA NP Apr 11, 2025 20:39
== END 2025-04-11 18:51 | disposition home or self-care (01) ==
LOC: EDH 09:52 → EDHIP 09:53 → 3DH 15:43
PROVIDERS: ADMIT Internal Medicine Critical Care Medicine; ATTEND Internal Medicine Critical Care Medicine
DX: K57.30 Diverticulosis of large intestine without perforation or abscess without bleeding (principal); K59.09 Other constipation; I10 Essential (primary) hypertension; K52.9 Noninfective gastroenteritis and colitis, unspecified; E78.00 Pure hypercholesterolemia, unspecified; Z90.710 Acquired absence of both cervix and uterus; Z85.3 Personal history of malignant neoplasm of breast; Z90.13 Acquired absence of bilateral breasts and nipples; Z79.899 Other long term (current) drug therapy
CPT/HCPCS: 96372 ×2; 96361; 96365; 96375 ×2; 99285; 80048; 85025; 81001; 36415 ×2; 74176; 96376; 96366; 83735; 80053; 85027; G0378 ×30; J2270; J1644 ×2; J2470 ×2; J3490 ×3; J1885; J3475